=== PATIENT | female | born 1985 | race Caucasian/White ===

== ENCOUNTER 2018-08-01 17:49 | Emergency (ER) | payer SELFPAY ==
[2018-08-01] MEDS ORDERED: FENTANYL CITRATE INJ/PF 100 MCG/2 ML AMPUL IV ONE (19:40)
[2018-08-01] MEDS ORDERED: NORMAL SALINE 1000 ML 1,000 ML IV ONE (19:40)
--- NOTE | 2018-08-01 19:42 | ER Document Report ---
ED Medical Screen (RME) - General Chief Complaint: Eye Pain Stated Complaint: EYE PAIN Time Seen by Provider: 08/01/18 19:15 Primary Care Provider: ANGIE MENDOZA [Primary Care Provider] - Follow up as needed Notes: Patient is a 33-year-old female presents to the emergency department with redness and swelling noted to her right eye. Patient states she thinks 2 days ago she started with a stye in the medial lower eyelid. States she "messed with it." States she is increased redness, swelling, discharge from her eyes which is why she presents to the emergency room. Patient's denying any fevers. EYES: Pupils equal, round, and reactive to light. Extraocular movements intact but is very painful right eye. Erythema and swelling noted below right eye and into the medial canthi. Copious amounts of mucoid discharge noted. I have greeted and performed a rapid initial assessment of this patient. A comprehensive ED assessment and evaluation of the patient, analysis of test results and completion of the medical decision making process will be conducted by additional ED providers. This medical record was dictated with voice recognizing software. There may be grammatical, syntax errors that are unintended. TRAVEL OUTSIDE OF THE [place] IN LAST 30 DAYS: No - Related Data Allergies/Adverse Reactions: No Known Allergies Allergy (Unverified 08/01/18 17:56) Physical Exam - Vital signs Vitals: Temp Pulse Resp BP Pulse Ox 98.5 F 58 L 16 102/61 98 08/01/18 18:04 08/01/18 18:04 08/01/18 18:04 08/01/18 18:04 08/01/18 18:04 Course - Vital Signs Vital signs: Temp Pulse Resp BP Pulse Ox 98.5 F 58 L 16 102/61 98 08/01/18 18:04 08/01/18 18:04 08/01/18 18:04 08/01/18 18:04 08/01/18 18:04 Doctor's Discharge - Discharge Referrals: ANGIE MENDOZA [Primary Care Provider] - Follow up as needed
[2018-08-01 20:13] LABS: ABSOLUTE EOSINOPHILS # (AUTO) 0.2 10^3/uL (0.0-0.6); ABSOLUTE MONOCYTES (AUTO) 0.8 10^3/uL (0.1-1.4); ABSOLUTE NEUT (AUTO) 4.5 10^3/uL (1.7-8.2); BASOPHILS % (AUTO) 0.4 % (0-2); EOSINOPHILS % (AUTO) 2.6 % (0-6); HEMATOCRIT 35.2 % (36.0-47.0); HEMOGLOBIN 11.7 g/dL (12.0-15.5); LYMPHOCYTES % (AUTO) 26.3 % (13-45); MEAN CORPUSCULAR HEMOGLOBIN 28.6 pg (27.0-33.4); MEAN CORPUSCULAR HGB CONC 33.1 g/dL (32.0-36.0); MEAN CORPUSCULAR VOLUME 86 fl (80-97); MONOCYTES % (AUTO) 10.1 % (3-13); PLATELET COUNT 417 10^3/uL (150-450); RED BLOOD COUNT 4.07 10^6/uL (3.72-5.28); RED CELL DISTRIBUTION WIDTH 22.2 % (11.5-14.0); SEGMENTED NEUTROPHILS % (AUTO) 60.6 % (42-78); TOTAL CELLS COUNTED % (AUTO) 100 %; WHITE BLOOD COUNT 7.4 10^3/uL (4.0-10.5)
[2018-08-01] MEDS ORDERED: CEFTRIAXONE 1 GM/D5W RTU 1 GM/50 ML RTUPB IV ONE (20:22)
--- NOTE | 2018-08-01 20:23 | ER Document Report ---
ED General - General Chief Complaint: Eye Pain Stated Complaint: EYE PAIN Time Seen by Provider: 08/01/18 19:15 Primary Care Provider: ANGIE MENDOZA [NO LOCAL MD] - Follow up as needed Mode of Arrival: Ambulatory Information source: Patient TRAVEL OUTSIDE OF THE [place] IN LAST 30 DAYS: No - HPI Patient complains to provider of: Stye right eye, periorbital infection Onset: Other - 2 to 3 days ago Onset/Duration: Gradual, Worse Quality of pain: Sharp, Throbbing Severity: Moderate Pain Level: 3 Associated symptoms: denies: Chills, Diarrhea, Fever, Nausea, Vomiting Exacerbated by: Movement, Other - Palpation of the lower eyelid Relieved by: Denies Similar symptoms previously: No Recently seen / treated by doctor: No Notes: Patient is a 33-year-old female coming in today with an infection of her right eye. She reports that she had a stye in the medial aspect of her right eye. She felt that it was full of pus so she reached up and popped it with her fingers. Ever since then it has become more erythematous swollen tender and hot and there is been a red swelling developing in the right periorbit. - Related Data Allergies/Adverse Reactions: No Known Allergies Allergy (Unverified 08/01/18 17:56) Past Medical History - General Information source: Patient - Social History Smoking Status: Current Every Day Smoker Family History: Reviewed & Not Pertinent Review of Systems - Review of Systems Notes: Constitutional: No fevers. No chills. EENT: Positive right eye swelling, redness, pain, drainage Cardiovascular: No chest pain. No palpitations. Respiratory: No cough. No shortness of breath. No respiratory distress. Gastrointestinal: No abdominal pain. No nausea, vomiting, or diarrhea. Genitourinary: Atraumatic. No lesions. No pain. No discharge. Musculoskeletal: Atraumatic. No swelling. No deformities. Skin: No rash or lesions. Lymphatic: No swollen lymph nodes. Neurologic: No headache. No syncope. Psychiatric: No suicidal or homicidal ideation. Physical Exam - Vital signs Vitals: Temp Pulse Resp BP Pulse Ox 98.5 F 58 L 16 102/61 98 08/01/18 18:04 08/01/18 18:04 08/01/18 18:04 08/01/18 18:04 08/01/18 18:04 - Notes Notes: General: Well-developed, well-nourished. In no acute distress. Non-toxic appearing. Cardiac: Well-perfused. Regular rate and rhythm. No murmurs, rubs, or gallops. Pulmonary: No respiratory distress. No cyanosis. Bilateral lung fiels are clear to auscultation. Abdominal: Non-distended. Non-rigid. Bowels sounds are present in all four quadrants. No guarding or rebound. HEENT: Head is atraumatic. Conjunctivae not reddened. No tearing. PERRL. EOMI. the medial canthus of the right eye is swollen, erythematous, warm, and draining bloody fluid. The right periorbit is red and swollen and warm. Neck: Supple. No adenopathy. No meningismus. Dermatologic: Warm with good turgor. No rash. Atraumatic. Chest: Atraumatic. No chest wall tenderness to palpation. Musculoskeletal: Moves all extremities well. No range of motion deficits. no muscular or joint tenderness. No paraspinal muscle tenderness. no midline spinal tenderness or step-off. Genitourinary: Examination deferred Neurologic: No gross neurologic deficits. Psychiatric: Normal mood. Course - Re-evaluation Re-evalutation: 08/01/18 20:21 Labs, pain medication and CT ordered to rule out more serious orbital infection. 08/01/18 22:07 CT does not show an orbital cellulitis. I will start the patient on Augmentin and a prescription for pain medication. I will emphasize the need to follow-up with Dr. Wiley tomorrow. Patient will call his office first thing in the morning to set up an appointment for recheck. - Vital Signs Vital signs: Temp Pulse Resp BP Pulse Ox 98.5 F 58 L 16 102/61 98 08/01/18 18:04 08/01/18 18:04 08/01/18 18:04 08/01/18 18:04 08/01/18 18:04 - Laboratory Result Diagrams: 08/01/18 19:57 08/01/18 19:57 Laboratory results interpreted by me: 08/01/18 08/01/18 19:57 19:57 Hgb 11.7 L Hct 35.2 L RDW 22.2 H Carbon Dioxide 31 H Discharge - Discharge Clinical Impression: Periorbital cellulitis of right eye Condition: Good Disposition: HOME, SELF-CARE Instructions: Cellulitis ([facility]) Additional Instructions: You have an infection in the tissues around her eyes are result of popping the bump on your eyelid. You have received antibiotics tonight through your IV which will protect you until tomorrow. You have received a prescription for Augmentin. Please fill it as soon as possible tomorrow and start tomorrow. [facility] Wiley office in the morning. Let them know that you were seen in the emergency department and that we are requesting that you be seen in the office tomorrow. Be sure to get your medicine filled and take it as directed. We want you to see the railroad signal technician tomorrow. Prescriptions: Hydrocodone/Acetaminophen [[place] 5-325 mg Tablet] 1 tab PO Q6HP PRN #10 tablet PRN Reason: Amox Tr/Potassium Clavulanate [Augmentin 875-125 Tablet] 1 tab PO BID 10 Days tablet Referrals: MARINE WILEY MD [ACTIVE STAFF] - Follow up tomorrow
[2018-08-01 20:30] LABS: ALANINE AMINOTRANSFERASE 18 U/L (9-52); ALBUMIN 4.3 g/dL (3.5-5.0); ALKALINE PHOSPHATASE 52 U/L (38-126); ANION GAP 9 (5-19); ASPARTATE AMINO TRANSFERASE 26 U/L (14-36); BILIRUBIN,DIRECT 0.3 mg/dL (0.0-0.4); BILIRUBIN,TOTAL 0.5 mg/dL (0.2-1.3); BLOOD UREA NITROGEN 15 mg/dL (7-20); CALCIUM 9.4 mg/dL (8.4-10.2); CARBON DIOXIDE 31 mmol/L (22-30); CHLORIDE 102 mmol/L (98-107); GLUCOSE 79 mg/dL (75-110); POTASSIUM 3.7 mmol/L (3.6-5.0); SODIUM 141.6 mmol/L (137-145); TOTAL PROTEIN 7.4 g/dL (6.3-8.2)
[2018-08-01] MEDS ORDERED: HYDROMORPHONE HCL INJ/PF 2 MG/ML AMPULE IV ONE (20:59)
--- NOTE | 2018-08-01 21:42 | RADIOLOGY REPORT (SQ) ---
EXAM DESCRIPTION: CT MAXILLOFACIAL WITH IV CONTRAST COMPLETED DATE/TME: 08/01/2018 19:39 CLINICAL HISTORY: 33 years Female painful EOM, swelling/redness/d/c COMPARISON: None. TECHNIQUE: Contiguous axial images obtained through the maxillofacial bones with IV contrast. Reformatted images obtained. This exam was performed according to our department optimization program which includes automated exposure control, adjustment of the mA and/or kv according to patient size and/or use of iterative reconstruction technique. FINDINGS: There is extensive dental disease. Visualized segments of the paranasal sinuses are free from significant mucosal thickening or fluid. Middle ears and mastoid air cells are clear. Soft tissue swelling over the right face. Globes appear intact. Extraocular muscles are symmetric. No evidence of retro-orbital mass or inflammation. Scattered small jugulodigastric lymph nodes bilaterally IMPRESSION: Soft tissue swelling over the right face No evidence of retroconal inflammatory change or abnormality Extensive dental disease
[2018-08-01 22:32] VITALS: BP 104/72
== END 2018-08-01 22:28 | disposition home or self-care (01) ==
LOC: ER 17:49
DX: L03.213 Periorbital cellulitis (principal); H00.013 Hordeolum externum right eye, unspecified eyelid; H57.11 Ocular pain, right eye; F17.200 Nicotine dependence, unspecified, uncomplicated
CPT/HCPCS: 99284; 96375; 96365; 36415; 87040; 84702; 85025; 80053; 70487; J3010; J1170; J7030; J0696